=== PATIENT | female | born 1960 | race Caucasian/White ===

== ENCOUNTER → 2021-02-06 | Outpatient (CLI) | payer OTHER ==
[~2021-02-06] MED LIST: AMIT25TA PO; ATOR40TA59 PO; CRAN200C2 PO; GLUC1TAB71 PO; LISI1TAB37 PO; METF500T16 PO; MULT-245 PO
[2021-02-06 15:54] LABS: BASO # 0.1 x10^3/uL (0.0-0.2); BASO % 1 % (0-3); EOS # 0.2 x10^3/uL (0.0-0.7); EOS % 2 % (0-3); HEMOGLOBIN 12.6 g/dL (12.0-15.5); LYMPH # 2.5 x10^3/uL (1.0-4.8); LYMPH % 31 % (24-48); MEAN CORPUSCULAR HEMOGLOBIN 30 pg (25-35); MEAN CORPUSCULAR HGB CONC 34 g/dL (31-37); MEAN CORPUSCULAR VOLUME 87 fL (79-100); MONO # 0.8 x10^3/uL (0.0-1.1); MONO % 10 % (0-9); NEUT # 4.6 x10^3/uL (1.8-7.7); NEUT % 56 % (31-73); PLATELET COUNT 317 x10^3/uL (140-400); RED BLOOD COUNT 4.25 x10^6/uL (3.50-5.40); RED CELL DISTRIBUTION WIDTH 13.9 % (11.5-14.5); WHITE BLOOD COUNT 8.2 x10^3/uL (4.0-11.0)
[2021-02-06 15:55] LABS: BILIRUBIN,URINE NEGATIVE (NEG); CLARITY,URINE CLEAR; COLOR,URINE YELLOW; NITRITE,URINE NEGATIVE (NEG); PROTEIN,URINE NEGATIVE (NEG-TRACE); UROBILINOGEN,URINE 0.2 mg/dL (0.2 mg/dL)
--- NOTE | 2021-02-06 16:07 | EKG ---
[facility] [address] [place] [address] Test Date: 2021-02-06 Test Time: 15:56:35 Pat Name: SKYLER SHARMA Department: Room: Gender: F Project Asst: ROSALIND : 1960 Requested By: LYNDSAY KELSEY Order Number: [id number] Reading MD: Josiah Ocasio MD Measurements Intervals [place] Rate: 72 P: 47 KS: 154 QRS: 22 QRSD: 74 T: 49 QT: 396 QTc: 435 Interpretive Statements SINUS RHYTHM Electronically Signed On 02-08-2021 10:45:55 CDT by Josiah Ocasio MD
[2021-02-06 16:08] LABS: ALBUMIN 3.9 g/dL (3.4-5.0); ALBUMIN/GLOBULIN RATIO 1.3 (1.0-1.7); CREATININE 0.8 mg/dL (0.6-1.0); GFR 73.4; POTASSIUM 3.8 mmol/L (3.5-5.1); TOTAL BILIRUBIN 0.3 mg/dL (0.2-1.0)
[2021-02-06 16:13] LABS: BACTERIA,URINE 0 /HPF (0-FEW); RBC,URINE OCC /HPF (0-2); WBC,URINE 0 /HPF (0-4)
[2021-02-06 16:13] LABS: CALCIUM 9.2 mg/dL (8.5-10.1)
--- NOTE | 2021-02-06 17:06 | RAD ---
XR CHEST 2V INDICATION: pre op evaluation. RECTOCELE AND BLADDER REPAIR SCHEDULED 02/24 . COMPARISON STUDY: None. FINDINGS: Lungs: Normal lung volume. No pulmonary mass or consolidation. The tracheobronchial tree and hilar st ructures are normal. Pleura: No pleural effusion or pneumothorax. Heart and Mediastinum: The cardiomediastinal silhouette is normal. The great vessels of the thorax ar e normal. Bones and Soft Tissues: The bones and soft tissues are within normal limits. IMPRESSION: No acute cardiopulmonary process. Electronically signed by: Saturnino Cadet MD (02/06/2021 5:04 PM) [id number]
[2021-02-07 04:10] LABS: HEMOGLOBIN A1C 6.4 % (4.8-5.6)
== END ==
LOC: EDUNIT# 14:30 → SURGPAT 15:19
PROVIDERS: ATTEND Obstetrics & Gynecology
DX: Z01.818 Encounter for other preprocedural examination (principal); N81.6 Rectocele
CPT/HCPCS: 36415; 71046; 80053; 81001; 83036; 85025; 93005

== ENCOUNTER 2021-02-22 06:11 | Observation (INO) | payer OTHER ==
[2021-02-06 15:45] VITALS: BP 139/65
[~2021-02-22] VITALS: Ht 167.6 cm; Wt 94.3 kg
[2021-02-22] VITALS (10 sets, daily range): BP systolic 112–144; BP diastolic 49–70
[~2021-02-22 06:11] MED LIST changes: +HYDROmorphone 2 MG/ML VIAL IVP PRN; +MORPHINE SULFATE 2 MG/ML INJ. IVP PRN; +PROCHLORPERAZINE 10 MG/2 ML VIAL. IVP PRN; +fentaNYL PF VIAL 100 MCG/2 ML VIAL IVP PRN
[2021-02-22] MEDS ORDERED: SCOPOLAMINE 1.5MG PATCH. TD ONE (06:15)
[2021-02-22] MEDS ORDERED: INSULIN LISPRO 100 UNIT/ML 3ML VIAL for OP,RR ONLY. SQ PRN (06:15)
[2021-02-22] MEDS: IV RINGERS,LACTATED 1000ML 1,000 ML IV SCH ×2 (06:41→10:09)
[2021-02-22] MEDS ORDERED: INSULIN LISPRO 100 UNIT/ML 3ML VIAL for OP,RR ONLY. SQ ONE (06:45)
[2021-02-22] MEDS ORDERED: DEXAMETHASONE SOD PHOS 20 MG/5 ML VIAL. ONE (06:46)
[2021-02-22] MEDS ORDERED: MIDAZOLAM HCL/PF 2 MG/2 ML VIAL. ONE (06:46)
[2021-02-22] MEDS ORDERED: fentaNYL PF VIAL 100 MCG/2 ML VIAL ONE (06:46)
[2021-02-22] MEDS ORDERED: PROPOFOL 10 MG/ML (20ML) VIAL. IV ONE (06:46)
[2021-02-22] MEDS ORDERED: FAMOTIDINE 20 MG/2 ML VIAL ONE (06:46)
[2021-02-22] MEDS ORDERED: ONDANSETRON PF 4 MG/2 ML VIAL. ONE (06:46)
[2021-02-22] MEDS ORDERED: ESTROGENS, CONJ VAGINAL CREAM 30GM TUBE. ONE (06:59)
[2021-02-22] MEDS ORDERED: BUPIVACAINE-EPI 0.25%-1:200000 MPF 30 ML VIAL. ONE ×2 (06:59)
[2021-02-22] MEDS ORDERED: KETOROLAC 30 MG/ML VIAL. ONE (09:20)
--- NOTE | 2021-02-22 09:54 | PDOC ---
BRIEF OPERATIVE NOTE Date: Feb 22, 2021 Pre-Op Diagnosis cystocele and rectocele Post-Op Diagnosis same Procedure Performed anterior and posterior repair and perineoplasty Surgeon Dr. Davis Collect On Delivery Clerk CATALINA Lee Anesthesiologist Dr. Aranda Anesthesia Type: General Blood Loss 20cc IV Fluid see anesthesia Urine Output torres Specimens Obtained anterior and posterior vaginal mucosa, but not sent for pathology Findings [id number] dictation number Complications none Operative Note findings 3 cystocele and 2-3 rectocele LYNDSAY DAVIS MD Feb 22, 2021 09:54
[2021-02-22] MEDS ORDERED: MORPHINE SULFATE 2 MG/ML INJ. IV PRN (10:00)
[2021-02-22] MEDS ORDERED: ONDANSETRON PF 4 MG/2 ML VIAL. IV PRN (10:00)
[2021-02-22] MEDS ORDERED: NALOXONE 0.4 MG/ML VIAL. IV PRN (10:00)
[2021-02-22] MEDS ORDERED: MAG HYDROX/ALUMINUM HYD/SIMETH 30 ML ORAL.SUSP PO PRN (10:00)
[2021-02-22] MEDS ORDERED: LACTULOSE 20 GM/30 ML SOLUTION. PO PRN (10:00)
[2021-02-22] MEDS ORDERED: MAGNESIUM HYDROXIDE 2,400 MG/30 ML ORAL.SUSP. PO PRN (10:00)
[2021-02-22] MEDS ORDERED: KETOROLAC 30 MG/ML VIAL. IVP ONE (10:00)
[2021-02-22] MEDS ORDERED: ZOLPIDEM 5 MG TABLET. PO PRN (10:00)
[2021-02-22] MEDS ORDERED: HYDROcodone/APAP 5/325MG 1 TAB TABLET PO PRN (10:00)
[2021-02-22] MEDS ORDERED: oxyCODONE/APAP 5/325 1 TAB TABLET PO PRN (10:00)
[2021-02-22] MEDS ORDERED: diphenhydrAMINE HCL 25 MG CAPSULE PO PRN (10:00)
[2021-02-22] MEDS ORDERED: CALCIUM CARBONATE 500 MG TAB.CHEW PO PRN (10:00)
[2021-02-22] MEDS ORDERED: diphenhydrAMINE 50 MG/ML VIAL IV PRN (10:00)
[2021-02-22] MEDS ORDERED: 0.9 % SODIUM CHLORIDE 10 ML DISP.SYRIN. IV PRN (10:00)
[2021-02-22] MEDS ORDERED: SIMETHICONE 80 MG TAB.CHEW PO PRN (10:00)
--- NOTE | 2021-02-22 11:00 | NUR ---
The patient, SKYLER SHARMA, 60 y/o, F brought to unit for observation by LYNDSAY KELSEY MD. Pt. was given written information regarding hospital policies, unit procedures and contact persons. Pt. oriented to room, unit, and hospital staff. Pt. educated about POC for observation. Pt. verbalized understanding and is agreeable to POC. Head to toe assessment and VS completed. Valuables were checked and left with pt.
--- NOTE | 2021-02-22 14:34 | NUR ---
RN spoke with MD. MD updated on pt. status including VS, activity, diet/intake, pain, and pt. requests to discharge home today. states that pt. is ok to discharge home after voiding. states pt. already has discharge prescriptions and a follow- up appointment scheduled.
--- NOTE | 2021-02-22 15:47 | OP ---
DATE OF SURGERY: 02/22/2021 PREOPERATIVE DIAGNOSES: Cystocele and rectocele, symptomatic. POSTOPERATIVE DIAGNOSES: Cystocele and rectocele, symptomatic. PROCEDURE: Anterior and posterior colporrhaphies and perineoplasty. SURGEON: Yue Davis MD. COLLECTIONS DIRECTOR: CATALINA Jean. ANESTHESIOLOGIST: Aayush Aranda MD. ANESTHESIA: General. BLOOD LOSS: 20 mL. URINE OUTPUT: Please see anesthesia. IV FLUIDS: Please see anesthesia. SPECIMEN: Anterior and posterior vaginal mucosa, but not sent for pathology. FINDINGS: She had a third-degree cystocele, [id number] degree rectocele upon exam. COMPLICATIONS: None. DESCRIPTION OF PROCEDURE: This patient was taken to the operating room where general anesthesia was placed. The patient was placed in dorsal lithotomy position in Ga stirrups. The patient's vagina was prepped and draped in normal sterile fashion and a Sauer catheter had been inserted under sterile technique. Upon my arrival, a timeout was performed. Once everyone agreed on the patient, the site, the procedure, the antibiotics, the procedure was initiated. We started with the cystocele repair, placed a weighted speculum in the patient's vagina and she was injected with a dilute solution of 50 mL of 0.25% Marcaine and epinephrine in 200 mL of injectable saline. It was a 1:4 ratio. A total, I believe of 140 mL was used, but this was on the cystocele, rectocele and perineal body total. So, I injected all at the beginning, then placed the weighted speculum back in to hold down the rectocele. Allis clamps were placed on the vaginal cuff as she had a prior hysterectomy and the cystocele was opened up with the 15-blade scalpel and Allises were placed on either side. Metzenbaum scissors were used to open up the defect all the way to just below the urethra, placing Allis clamps along the way. Fanning them out on the patient's right side, the Metzenbaums were used to release the defect from the anterior vaginal mucosa and an open Ray-Jett 4 x 4 was used to gently push up the defect. This was done exactly the same on the left side, sharply and bluntly, releasing it and then pushing it up until it was completely up and out of the way in a nice avascular plane. Then, in a series of I believe about 6-8 interrupted sutures with 2-0 Vicryl were used and tagged and then going back and tying them from anterior to posterior and reducing the defect with the blunt end of a retractor, along the way pushing up that defect and then going back and placing 3 or 4 imbricating stitches to make sure it was up and reinforcing it. Then, both sides were fanned out and the excess anterior vaginal mucosa on both sides was trimmed and it was closed with 2-0 Vicryl in a running locked fashion. At this point, the weighted speculum was removed and curved Kochers were placed at 4 and 7 o'clock at the vaginal introitus that was gaping and a knife was used to cut a kunal shaped wedge at the introitus opening and down on the perineal body and then the rectocele was also opened up placing Allises along the way using the Metzenbaum scissors to get under it and open up the posterior vaginal mucosa as well. It went all the way up and met at the vaginal cuff that first defect literally the entire way up. Again, fanning them out using the Metzenbaums to release it, the Ray-Jett to reduce it and the Metzenbaums to keep any adhesions or filmy areas that could be cut down before reducing it on both sides. Once it was done, probably at least 8-10 interrupted 2-0 Vicryl sutures were used to reduce the defect and then few imbricating stitches were placed over this as well to reduce the defect for strength and integrity to the defect. Then, both sides were trimmed with the Metzenbaum scissors here as well and it was closed again with 2-0 Vicryl in a running locked fashion from the vaginal cuff down to the opening of the introitus and then going under it and completing it like an episiotomy repair, reapproximating the perineal body, building it and then subcuing the perineal body superficially and then tying it back in the vagina. There was no active bleeding. Premarin cream with vaginal packing was placed and at the end, the catheter was removed. The patient was awakened from anesthesia and brought to recovery room in stable condition. MELISSA/FILIBERTO DR: Rosy TID: [id number]
--- NOTE | 2021-02-22 16:14 | NUR ---
Discharge Note: SKYLER SHARMA L3 SO LND Discharge instructions and discharge home medications reviewed with Patient and a copy given. All questions have been answered and understanding verbalized. The following instructions and handouts were given: Anterior and Posterior Repair, Colporraphy, Care After Rectocele/Enterocele, Care After Cystocele Repair, Care After Discontinued lines and drains: 20 g right hand. Removed. Catheter tip intact. No complications. Patient discharged to home with self-care via WC to private vehicle.
== END 2021-02-22 16:05 | disposition home or self-care (01) ==
LOC: SURG 06:11 → EDUNIT# 07:30 → 3 SO LND 09:54
PROVIDERS: ADMIT Obstetrics & Gynecology; ATTEND Obstetrics & Gynecology
DX: N99.3 Prolapse of vaginal vault after hysterectomy (principal); Z20.822 Contact with and (suspected) exposure to COVID-19; Z79.899 Other long term (current) drug therapy
CPT/HCPCS: 36415; 57260; 82962; 86850; 86900; 86901; 87426; A4213; A4314; A4344; A4930; G0378; G0379; J0690; J1100; J1815; J1885; J2250; J2405; J2704; J3010; J3490; A4315

== ENCOUNTER → 2021-04-06 | Outpatient (CLI) | payer OTHER ==
[2021-02-22 15:00] VITALS: BP 133/49
[~2021-04-06] MED LIST changes: -HYDROmorphone 2 MG/ML VIAL IVP PRN; -MORPHINE SULFATE 2 MG/ML INJ. IVP PRN; -PROCHLORPERAZINE 10 MG/2 ML VIAL. IVP PRN; -fentaNYL PF VIAL 100 MCG/2 ML VIAL IVP PRN
== END ==
LOC: SPEC 11:53
PROVIDERS: ATTEND Obstetrics & Gynecology
DX: R35.0 Frequency of micturition (principal)
CPT/HCPCS: 87077; 87086; 87186